=== PATIENT | female | born 1990 | race Caucasian/White ===

== ENCOUNTER 2017-01-22 15:22 | Emergency (ER) | payer OTHER ==
[2017-01-22 15:36] VITALS: BP 127/85; PULSE 80; RESP 18; TEMP 98.2; O2SAT 98
[2017-01-22] MEDS ORDERED: Lidocaine 1% Inj (20ml) INFIL STA (15:51)
[2017-01-22] MEDS ORDERED: Bacitracin 500 Units/gm Oint Foilpak UD TOP ONE (16:27)
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
[2017-01-22] MEDS ORDERED: Bacitracin 500 Units/gm Oint Foilpak UD ONE (16:47)
== END 2017-01-22 17:06 | disposition home or self-care (01) ==
LOC: C.ER 15:22
DX: S01.412A Laceration without foreign body of left cheek and temporomandibular area, initial encounter (principal); Y04.2XXA Assault by strike against or bumped into by another person, initial encounter; Y92.9 Unspecified place or not applicable

== ENCOUNTER 2017-01-31 13:04 | Emergency (ER) | payer OTHER ==
[2017-01-31 13:22] VITALS: BP 120/81; PULSE 64; RESP 18; TEMP 97.5; O2SAT 99
[2017-01-31] MEDS ORDERED: Bacitracin 500 Units/gm Oint Foilpak UD ONE (13:42)
--- NOTE | 2017-01-31 14:05 | C.PDOC ---
History Of Present Illness 26 y/o female presents to ED requesting suture removal. Patient states sutures were placed on 01/22/17 on left cheek and denies discharge, active bleeding or any other complaints at this time. Time Seen by Provider: 01/31/17 13:35 Chief Complaint (Nursing): Suture/Staple Removal History Per: Patient History/Exam Limitations: no limitations Onset/Duration Of Symptoms: Days Ago Current Symptoms Are (Timing): Still Present Location Of Injury: Left: Face Past Medical History Reviewed: Historical Data, Nursing Documentation, Vital Signs Vital Signs: Last Vital Signs Temp 97.5 F L 01/31/17 13:19 Pulse 64 01/31/17 13:19 Resp 18 01/31/17 13:19 BP 120/81 01/31/17 13:19 Pulse Ox 99 01/31/17 14:08 - Medical History PMH: Depression Denies: Chronic Kidney Disease Family History: States: Unknown Family Hx - Social History Hx Tobacco Use: Yes Hx Alcohol Use: No Hx Substance Use: Yes (marijuan use/daily) - Immunization History Hx Tetanus Toxoid Vaccination: No Hx Influenza Vaccination: No Hx Pneumococcal Vaccination: No Review Of Systems Except As Marked, All Systems Reviewed And Found Negative. Constitutional: Negative for: Fever Skin: Negative for: Rash Neurological: Negative for: Headache Physical Exam - Physical Exam Appears: Non-toxic, No Acute Distress Skin: Normal Color, Warm, Other (Clean, dry and intact suture to left cheek) Head: Atraumatic, Normacephalic Eye(s): bilateral: Normal Inspection Neck: Normal ROM Chest: Symmetrical Extremity: Bilateral: Atraumatic, Normal ROM Neurological/Psych: Oriented x3, Normal Speech Gait: Steady ED Course And Treatment O2 Sat by Pulse Oximetry: 99 (RA) Pulse Ox Interpretation: Normal Medical Decision Making Medical Decision Making: Patient is here for suture removal. Sutures removed by me without difficulty. Patient stable for discharge Disposition Counseled Patient/Family Regarding: Need For Followup - Disposition Disposition: HOME/ ROUTINE Disposition Time: 13:45 Condition: GOOD Instructions: Stitches Removal (ED) - POA Present On Arrival: None - Clinical Impression Clinical Impression: Removal of suture - PA / AIRPLANE ENGINEER / Resident Statement MD/DO has reviewed & agrees with the documentation as recorded. - Scribe Statement The provider has reviewed the documentation as recorded by the Nuzhattalib Johnson All medical record entries made by the Isamar were at my direction and personally dictated by me. I have reviewed the chart and agree that the record accurately reflects my personal performance of the history, physical exam, medical decision making, and the department course for this patient. I have also personally directed, reviewed, and agree with the discharge instructions and disposition.
== END 2017-01-31 13:46 | disposition home or self-care (01) ==
LOC: C.ER 13:04
DX: Z48.02 Encounter for removal of sutures (principal)

== ENCOUNTER 2018-12-31 10:56 | Emergency (ER) | payer OTHER ==
[2018-12-31] MEDS ORDERED: Sodium Chloride 0.9% 1,000 ML IV ONE (11:14)
[2018-12-31 11:49] LABS: BASO % 0.5 % (0.0-2.0); EOS # 0.2 K/uL (0.0-0.7); EOS % 2.8 % (0.0-4.0); LYMPH # 1.5 K/uL (1.0-4.3); LYMPH % 23.4 % (20.0-40.0); MEAN CELL VOLUME 87.6 fL (81.0-99.0); MEAN CORPUSCULAR HEMOGLOBIN 30.4 pg (27.0-31.0); MEAN CORPUSCULAR HGB CONC 34.7 g/dL (33.0-37.0); MEAN PLATELET VOLUME 8.4 fL (7.2-11.7); MONO # 0.5 K/uL (0.0-0.8); MONO % 7.7 % (0.0-10.0); NEUT # 4.1 K/uL (1.8-7.0); NEUT % 65.6 % (50.0-75.0); RBC 4.59 Mil/uL (3.80-5.20); RED CELL DISTRIBUTION WIDTH 13.5 % (11.5-14.5); WHITE BLOOD COUNT 6.3 K/uL (4.8-10.8)
[2018-12-31 11:55] LABS: HCG,QUALITATIVE URINE POSITIVE (NEGATIVE)
[2018-12-31 11:58] LABS: INR 1.2; PARTIAL THROMBOPLASTIN TIME 36.2 SECONDS (21-34); PROTHROMBIN TIME 13.6 SECONDS (9.7-12.2)
[2018-12-31 12:02] LABS: ALB/GLOB RATIO 1.6 (1.0-2.1); ALBUMIN 4.1 g/dL (3.5-5.0); ALT/SGPT 36 U/L (9-52); AST/SGOT 36 U/L (14-36); BLOOD UREA NITROGEN 11 mg/dL (7-17); CALCIUM 9.2 mg/dl (8.6-10.4); GFR NON-AFRICAN AMERICAN > 60; SQUAMOUS EPITHIAL 8 /hpf (0-5); URINE BILIRUBIN NEGATIVE (NEGATIVE); URINE BLOOD NEGATIVE (NEGATIVE); URINE CLARITY Hazy (Clear); URINE COLOR Yellow (YELLOW); URINE GLUCOSE (UA) NORMAL (Normal); URINE LEUKOCYTE ESTERASE NEG Leu/uL (Negative); URINE PROTEIN NEGATIVE (NEGATIVE); URINE UROBILINOGEN NORMAL mg/dL (0.2-1.0)
--- NOTE | 2018-12-31 13:37 | C.PDOC ---
History Of Present Illness 28 y/o female, , LMP 11/06/18, comes in to ED with lower abdominal pain, which she describes as cramping, for the past 2 weeks. States she has not seen an OB and found out shes 2 weeks ago. She denies fever, urinary sym ptoms, vaginal discharge or bleeding, or other complaints. Time Seen by Provider: 12/31/18 11:11 Chief Complaint (Nursing): GI Problem History Per: Patient History/Exam Limitations: no limitations Onset/Duration Of Symptoms: Days Current Symptoms Are (Timing): Still Present Past Medical History Reviewed: Historical Data, Nursing Documentation, Vital Signs Vital Signs: Last Vital Signs Temp 98.4 F 12/31/18 10:59 Pulse 74 12/31/18 10:59 Resp 20 12/31/18 10:59 BP 129/79 12/31/18 10:59 Pulse Ox 97 12/31/18 10:59 Primary Care Provider: Capri Bray I - Medical History PMH: Depression Denies: Chronic Kidney Disease Family History: States: No Known Family Hx - Social History Hx Tobacco Use: Yes Hx Alcohol Use: No Hx Substance Use: Yes (marijuan use/daily) - Immunization History Hx Tetanus Toxoid Vaccination: No Hx Influenza Vaccination: No Hx Pneumococcal Vaccination: No Review Of Systems Except As Marked, All Systems Reviewed And Found Negative. Constitutional: Negative for: Fever, Chills Gastrointestinal: Positive for: Abdominal Pain (lower abdominal pain). Negative for: Nausea, Vomiting Genitourinary: Negative for: Dysuria, Hematuria, Vaginal Discharge, Vaginal Bleeding Musculoskeletal: Negative for: Back Pain Physical Exam - Physical Exam Appears: Non-toxic, No Acute Distress Skin: Warm, Dry Head: Normacephalic Eye(s): bilateral: Normal Inspection Oral Mucosa: Moist Neck: Supple Cardiovascular: Rhythm Regular, No Murmur Respiratory: Normal Breath Sounds, No Rales, No Rhonchi, No Wheezing Gastrointestinal/Abdominal: Soft, Tenderness (minimal suprapubic tenderness), No Distention, No Guarding, No Rebound Back: No CVA Tenderness Extremity: Bilateral: Normal Color And Temperature, Normal ROM Neurological/Psych: Oriented x3, Normal Speech ED Course And Treatment - Laboratory Results Result Diagrams: 12/31/18 11:43 12/31/18 11:43 Lab Results: PT 13.6 SECONDS (9.7-12.2) H 12/31/18 11:43 INR 1.2 12/31/18 11:43 APTT 36.2 SECONDS (21-34) H 12/31/18 11:43 Total Bilirubin 0.9 mg/dL (0.2-1.3) 12/31/18 11:43 AST 36 U/L (14-36) 12/31/18 11:43 ALT 36 U/L (9-52) 12/31/18 11:43 Alkaline Phosphatase 41 U/L (38-126) 12/31/18 11:43 Total Protein 6.8 g/dL (6.3-8.3) 12/31/18 11:43 Albumin 4.1 g/dL (3.5-5.0) 12/31/18 11:43 Globulin 2.6 gm/dL (2.2-3.9) 12/31/18 11:43 Albumin/Globulin Ratio 1.6 (1.0-2.1) 12/31/18 11:43 Urine Color Yellow (YELLOW) 12/31/18 11:43 Urine Clarity Hazy (Clear) 12/31/18 11:43 Urine pH 6.0 (5.0-8.0) 12/31/18 11:43 Ur Specific [place] 1.023 (1.003-1.030) 12/31/18 11:43 Urine Protein Negative mg/dL (NEGATIVE) 12/31/18 11:43 Urine Glucose (UA) Normal mg/dL (Normal) 12/31/18 11:43 Urine Ketones Trace mg/dL (NEGATIVE) 12/31/18 11:43 Urine Blood Negative (NEGATIVE) 12/31/18 11:43 Urine Nitrate Negative (NEGATIVE) 12/31/18 11:43 Urine Bilirubin Negative (NEGATIVE) 12/31/18 11:43 Urine Urobilinogen Normal mg/dL (0.2-1.0) 12/31/18 11:43 Ur Leukocyte Esterase Neg Isela/uL (Negative) 12/31/18 11:43 Urine WBC (Auto) 1 /hpf (0-5) 12/31/18 11:43 Urine RBC (Auto) 1 /hpf (0-3) 12/31/18 11:43 Ur Squamous Epith Cells 8 /hpf (0-5) H 12/31/18 11:43 Urine HCG, Qual Positive (NEGATIVE) 12/31/18 11:43 Beta HCG, Quant 44679.00 mIU/ML 12/31/18 11:43 Urine HCG, Qual Positive (NEGATIVE) 12/31/18 11:43 O2 Sat by Pulse Oximetry: 97 (RA) Pulse Ox Interpretation: Normal - CT Scan/US Obstetrics US Other Rad Studies (CT/US): Read By Radiologist, Radiology Report Reviewed CT/US Interpretation: FINDINGS: UTERUS: Gestational sac: Single intrauterine gestation. Heart rate: 129 bpm. age (Ultrasound estimated): 7 weeks 1 day +/-0 weeks 4 days. [place]-gestational hemorrhage: None. Date of delivery (Ultrasound estimated) : 08/18/2019. Uterus measures 8.9 x 5.9 cm. Normal in size and appearance. CERVIX: Measures 3.05 cm. Long and closed. No cervical abnormality seen. RIGHT OVARY: Measures 2.8 x 1.4 x 2.2 cm. No mass lesion. Normal flow. LEFT OVARY: Measures 2.9 x 1.9 x 2.6 cm. No solid mass. Normal flow. FREE FLUID: None. OTHER FINDINGS: None. IMPRESSION: Single intrauterine live with ultrasound estimated gestational age of 7 weeks 1 day +/-0 weeks 4 days. Estimated date of delivery by ultrasound is 08/18/2019 Medical Decision Making Medical Decision Making: ro dehydraiton, hyperemesis, ab, ectopic Plan: --Labs --Obstetrics US --UA --IV fluids labs neg. trace ketonses. no vomiting in er. tolerating po. iup confirmed pain minimal stable for dc. no rlq ttp. Disposition - Disposition Referrals: [facility] [Outside] [facility]Outside[facility] [[facility]] Disposition: AGAINST MEDICAL ADVICE Disposition Time: 15:00 Condition: STABLE Additional Instructions: return to any er with worsening symptoms or concerns. follow up wiht your obgyn. Instructions: Threatened Miscarriage Forms: [facility] [facility] (Azeri) - Clinical Impression Clinical Impression: Threatened miscarriage - Scribe Statement The provider has reviewed the documentation as recorded by the Nuzhatibrolan Aldana Provider Attestation: All medical record entries made by the Nuzhatibrolan were at my direction and personally dictated by me. I have reviewed the chart and agree that the record accurately reflects my personal performance of the history, physical exam, medical decision making, and the department course for this patient. I have also personally directed, reviewed, and agree with the discharge instructions and disposition.
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
[2018-12-31 15:52] VITALS: BP 129/78; PULSE 62; RESP 16; TEMP 98.1
[2018-12-31 17:11] VITALS: O2SAT 97
== END 2018-12-31 15:52 | disposition left against medical advice (07) ==
LOC: C.ER 10:56
DX: O20.0 Threatened abortion (principal); Z3A.01 Less than 8 weeks gestation of pregnancy
CPT/HCPCS: 76805; 76817; 80053; 81001; 84702; 84703; 85025; 85610; 85730; 86850; 86900; 96360; 99285; J7030